=== PATIENT | female | born 1960 | race Caucasian/White ===

== ENCOUNTER 2018-10-05 05:22 | Inpatient (IN) ==
[2018-10-05] MEDS ORDERED: Ipratropium/Albuterol Neb 3 ML IH ONE ×3 (05:24→11:40)
--- NOTE | 2018-10-05 05:27 | Emergency Department Note ---
Addendum entered and electronically signed by Glenn Mccauley MD 10/05/18 10:24: Dr. Teran believes the patient will be appropriate for admission to this facility. Inpatient orders have been placed for continuation of Rocephin and azithromycin, prednisone, Mucinex and when necessary albuterol treatments. Further orders will be per Dr. Teran on the patient's arrival to the inpatient floor. Diagnosis acute respiratory insufficiency, multifocal pneumonia, bilateral pl eural effusions, possible pulmonary edema, elevated lactic acid, stable troponin elevation Addendum entered and electronically signed by Glenn Mccauley MD 10/05/18 10:19: Dr. Teran has come to the department to evaluate this patient personally. Radiology report is as follows: Impressions Chest X-Ray 10/05/18 05:23 IMPRESSION: Perihilar infiltrates with probable small left pleural effusion likely on the basis of pulmonary edema. D/ / 10/05/2018 07:21:06 Kirill Tapia MD / [facility] Interpreting Provider: Kirill Tapia MD Chest CTA 10/05/18 08:59 IMPRESSION: No evidence of pulmonary embolism. Patchy airspace opacities bilaterally, may be related to pulmonary edema versus multifocal pneumonia. Bilateral pleural effusions, moderate on the left and large on the right. D/ / Clay Lane MD / Clay Lane MD Interpreting Provider: Clay Lane MD Addendum entered and electronically signed by Glenn Mccauley MD 10/05/18 10:13: With return of CT results, page has been placed to Dr. Teran to discuss ongoing care. With the effusions and patchy infiltrates I believe the patient will need covered for possible multifocal pneumonia/atypical pneumonia. Rocephin, azithromycin and Solu-Medrol have been ordered. Her influenza was negative. She currently has a heart rate of 107, respiratory rate of 18, saturation of 96% and a blood pressure of 119/75. I will discuss the ultimate disposition with Dr. Teran prior to finalizing any orders for inpatient care. Addendum entered and electronically signed by Glenn Mccauley MD 10/05/18 09:47: 0945: The patient is completed a DuoNeb aerosol and has been able to try a trial of laying flat in the emergency department. She has been taken to CT for PE study. I have reviewed her previous record and I do not see a definite history of COPD although she indicated to me has had history of some chronic bronchitis and pneumonias. She also has a previous history of diverticulitis in the past. There is no record and history of coronary disease, CHF, DVT, PE or smoking. She does have some elevation of her BMI. Her orthopedic surgery was a left knee meniscus procedure. The record does reflect a cardiac catheterization in the distant past which was reported to be normal. An September 2015 she had a chemical nuclear stress test with perfusion results being negative for ischemia or infarction, EKG nondiagnostic due to baseline abnormal ST and no chest pain with stress. Addendum entered and electronically signed by Glenn Mccauley MD 10/05/18 09:04: 0850: Patient was resting in the emergency department awaiting a repeat troponin prior to admission. The troponin was stable at 0.05 but her lactic acid increased from 2.6 to 5.8. This prompted me to review the patient's chart prior to her admission. She is noted to have a white count of 23 with some shift of neutrophils without bandemia. Her blood gas showed some relative hyperventilation with hypoxia. Her renal function was normal. Her BNP is 1245. Her chest x-ray shows prominence. Perihilar infiltrates without other cephalization or significant venous distention. The patient's cardiac silhouet te appears entirely normal and unchanged from prior imaging. I discussed care with Dr. Teran and examined the patient. The patient states that she has had increased symptoms for about 2 weeks. She is been almost unable to get up or walk around for 5 days because of dyspnea on exertion. She has been sleeping sitting up due to orthopnea. She has not had any significant lower extremity edema despite sitting with her feet dependent over this period of time. She states "I thought I had bronchitis or pneumonia". She indicates she has had similar symptoms in the past, but not this bad. She has not been having significant fevers or chills. She states she lives alone and does not have any ill exposures. To clarify her pulmonary status, a CT PE study will be performed to further evaluate between pneumonia, pulmonary edema and pulmonary embolism prior to hospital admission. She will be placed on a nonrebreather mask to allow her to lay flat for the CT study. She has been written for a small fluid bolus and continuation of IV fluids with her elevating lactic acid. Further medications will be administered and ultimate disposition determined depending on results of CT testing. Original Note: Disposition Clinical Impression: Congestive heart failure Qualifiers: Heart failure type: unspecified Heart failure chronicity: acute Qualified Code(s): I50.9 - Heart failure, unspecified Dyspnea Qualifiers: Dyspnea type: dyspnea on exertion Qualified Code(s): R06.09 - Other forms of dyspnea Disposition: Admitted As Inpatient Condition: Fair Referrals: NONE,PCP [Primary Care Provider] - Forms: ED Satisfaction Letter Time of Disposition: 07:14 SOB HPI - General Chief Complaint: ED Shortness of Breath/Dyspnea Stated Complaint: MARCIAL Time Seen by Provider: 10/05/18 05:22 Source: patient, EMS Mode of arrival: EMS Limitations: no limitations Nursing Notes Reviewed: Yes Vital Signs Reviewed: Yes - History of Present Illness Pt Subjective Complaint: shortness of breath, cough Onset (ago): week(s) (About 2 weeks) Severity: severe Consistency/Duration: gradually worsening (Over the past 2 weeks) Improves with: nothing Worsens with: lying flat, exertion Associated symptoms: Reports: cough, sputum production Treatment prior to arrival: bronchodilator Cough present: Yes Cough Frequency: Intermittent Sputum production: Yes Sputum Amount: Scant - Related Data Home oxygen amount: none Home Medications Medication Instructions Recorded Confirmed Atenolol [Tenormin] 50 mg PO DAILY 04/14/15 10/10/16 BuPROPion XL (24 HR) [Wellbutrin 150 mg PO DAILY 04/14/15 10/10/16 XL] Diazepam [Valium] 10 mg PO BID 04/14/15 10/10/16 Dicyclomine [Bentyl] 10 mg PO DAILY 04/14/15 10/10/16 Gabapentin [Neurontin] 600 mg PO DAILY 04/14/15 10/10/16 Hydrochlorothiazide 25 mg PO DAILY 04/14/15 10/10/16 Lamotrigine [Lamictal] 200 mg PO HS 04/14/15 10/10/16 Nitroglycerin [Nitrostat] 0.4 mg SL AD PRN 04/14/15 10/10/16 Quetiapine Fumarate [SEROquel] 25 mg PO HS 04/14/15 10/10/16 Previous Rx's Medication Instructions Recorded Promethazine [Phenergan] 25 mg PO Q6HR PRN #14 tablet 08/25/15 Doxycycline 100 mg PO BID #14 capsule 10/10/16 Allergies Allergy/AdvReac Type Severity Reaction Status Date / Time ampicillin AdvReac Rash Verified 04/14/15 20:04 All systems ED: reviewed and negative except as stated. Constitutional: Reports: chills. Denies: fever ENT ED: Denies: ear pain, throat pain, congestion Cardiovascular: Reports: dyspnea on exertion. Denies: chest pain, palpitations Respiratory: Reports: cough, dyspnea, wheezes Gastrointestinal: Denies: abdominal pain, vomiting, diarrhea Integumentary: Denies: rash Neurological: Denies: headache Past Medical History - Past Medical History Attestation: Yes The following information was validated with the patient. 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 Absent: scleral icterus, conjunctival injection - ENT ENT exam: normal exam, normal oropharynx, mucous membranes moist, TM's normal bilaterally, normal external ear exam - Neck Neck exam: Present: normal inspection, full ROM, trachea midline. Absent: meningismus - Chest Chest inspection: Present: normal inspection, symmetric chest wall rise. Absent: tenderness - Respiratory Respiratory exam: Present: normal lung sounds bilaterally, respiratory distress (Tachypnea), prolonged expiratory phase - Cardiovascular Cardiovascular exam: Present: normal rhythm, tachycardia, normal heart sounds - Abdominal Exam Abdominal exam: Present: soft, Non-Tender, normal bowel sounds - Extremities Exam Extremities exam: Present: normal inspection, full ROM, pedal edema (Trace) - Neurological Exam Neurological exam: Present: alert, oriented X3 - Psychiatric Psychiatric exam: Present: normal affect, normal mood - Skin Skin exam: Present: warm, dry. Absent: rash Course Course Narrative: Patient presents with worsening shortness of breath over the past 2 weeks. Over the past couple of days she doing a lot of coughing started bringing up some mucus talks about dyspnea on exertion but also talks about orthopnea. On physical exam I do not hear any rales in the lungs and I only see trace peripher al edema. This could be COPD. A will give her breathing treatments and initiated shortness of breath workup. Disposition will be based on diagnostic results and reevaluation. - Reevaluation(s) Reevaluation #1: BNP is elevated and the chest x-ray has a CHF pattern to it. Coupling this with dyspnea on exertion and orthopnea, it seems consistent with CHF. I ordered Lasix for the patient. Her troponin is 0.05 which is just shaved above the legal limit. We will repeat that to make sure that is not trending upward. She will need to be admitted. If the troponin is not trending upward we can admit her here. I have given her Lasix. Patient is not telling me she has not taken her blood pressure medicine, including her diuretic, for a while. Time: 07:11 Reevaluation #2: I spoke with the hospitalist. He is accepting the patient for admission to the hospital as long as a troponin is not trending up. Her repeat troponin is due to be drawn at 8:00. At that point is the end of my shift. I will write the admission orders but the oncoming physician will monitor that troponin results and if it is the same or less then the patient will be admitted to the floor. If its trending upward and he will talk to the hospitalist to determine appropriate disposition that point. Time: 07:24 - Consultations Consultation #1: Dr. Teran, hospitalist - I discussed the case with the hospitalist. He accepted the patient for admission pending the repeat troponin. Time: 07:23 Vital Signs Temperature 98.2 F 10/05/18 05:22 Pulse Rate 118 10/05/18 05:22 Respiratory Rate 24 10/05/18 05:22 Blood Pressure 143/93 10/05/18 05:22 O2 Sat by Pulse Oximetry 90 10/05/18 05:22 Temperature 98.2 F 10/05/18 05:22 Pulse Rate 104 10/05/18 06:35 Respiratory Rate 25 10/05/18 06:35 Blood Pressure 125/91 10/05/18 06:35 O2 Sat by Pulse Oximetry 100 10/05/18 06:35 Oxygen Delivery Oxygen Delivery Aerosol Mask Shortness of Breath/Dyspnea - Medical Records Medical records reviewed: Yes I reviewed the patient's medical records. - Lab Data Lab results reviewed: Yes I reviewed the patient's lab results. Result diagrams: 10/05/18 05:46 10/05/18 05:46 Lab Results 10/05/18 10/05/18 10/05/18 Range/Units 05:46 05:46 05:46 WBC 23.0 H (4.3-11.1) K/mcL RBC 4.31 (3.82-4.97) M/mcL Hgb 13.4 (11.5-15.4) g/dL Hct 39.8 (35.3-44.9) % MCV 92.3 (83.0-100.0) fL MCH 31.1 (28.0-33.3) pg MCHC 33.7 (31.6-35.5) g/dL RDW 14.5 (11.5-14.5) % Plt Count 448 H (140-400) K/mcL MPV 11.7 (9.4-12.4) fL Immature Gran % 0.5 (0-4) % Seg Neutrophils % 75.9 % Lymphocytes % 16.6 % Monocytes % 6.6 % Eosinophils % 0.2 % Basophils % 0.2 % Neutrophils # 17.5 H (1.6-8.9) K/mcL Lymphocytes # 3.8 (0.6-4.6) K/mcL Monocytes # 1.5 H (0.0-1.3) K/mcL Eosinophils # 0.1 (0.0-0.6) K/mcL Basophils # 0.1 (0.0-0.2) K/mcL Sample Site ABG pH (7.32-7.45) pH Units ABG pCO2 (35-45) mmHg ABG pO2 (85-104) mmHg ABG HCO3 (21-27) mEq/L ABG Total CO2 (20-26) mEq/L ABG O2 Saturation (95-98) % ABG Base Excess (-2 to 3) mEq/L Grupo Test O2 Delivery Device Inspired O2 (1-15=lpm [id number]=%) Sodium 136 (136-145) mEq/L Potassium 3.5 (3.5-5.1) mEq/L Chloride 100 (98-107) mEq/L Carbon Dioxide 20 L (23-29) mEq/L BUN 22 H (6-20) mg/dL Creatinine 0.64 (0.60-1.20) mg/dL Est GFR ( Amer) > 60 (> 60) Est GFR (Non-Af Amer) > 60 (> 60) BUN/Creatinine Ratio 34 H (6-26) Glucose 144 H (70-105) mg/dL Calculated Osmolality 288 (280-300) Lactic Acid 2.6 H (0.5-2.2) mmol/L Calcium 9.8 (8.6-10.3) mg/dL Troponin I 0.05 H* (< 0.04) ng/mL B-Natriuretic Peptide (Less than 100) pg/mL 10/05/18 10/05/18 Range/Units 05:46 06:24 WBC (4.3-11.1) K/mcL RBC (3.82-4.97) M/mcL Hgb (11.5-15.4) g/dL Hct (35.3-44.9) % MCV (83.0-100.0) fL MCH (28.0-33.3) pg MCHC (31.6-35.5) g/dL RDW (11.5-14.5) % Plt Count (140-400) K/mcL MPV (9.4-12.4) fL Immature Gran % (0-4) % Seg Neutrophils % % Lymphocytes % % Monocytes % % Eosinophils % % Basophils % % Neutrophils # (1.6-8.9) K/mcL Lymphocytes # (0.6-4.6) K/mcL Monocytes # (0.0-1.3) K/mcL Eosinophils # (0.0-0.6) K/mcL Basophils # (0.0-0.2) K/mcL Sample Site R Brach ABG pH 7.46 H (7.32-7.45) pH Units ABG pCO2 25 L (35-45) mmHg ABG pO2 77 L (85-104) mmHg ABG HCO3 18 L (21-27) mEq/L ABG Total CO2 19 L (20-26) mEq/L ABG O2 Saturation 96 (95-98) % ABG Base Excess -5 L (-2 to 3) mEq/L Grupo Test N/A O2 Delivery Device Cannula Inspired O2 3.0 (1-15=lpm [id number]=%) Sodium (136-145) mEq/L Potassium (3.5-5.1) mEq/L Chloride (98-107) mEq/L Carbon Dioxide (23-29) mEq/L BUN (6-20) mg/dL Creatinine (0.60-1.20) mg/dL Est GFR ( Amer) (> 60) Est GFR (Non-Af Amer) (> 60) BUN/Creatinine Ratio (6-26) Glucose (70-105) mg/dL Calculated Osmolality (280-300) Lactic Acid (0.5-2.2) mmol/L Calcium (8.6-10.3) mg/dL Troponin I (< 0.04) ng/mL B-Natriuretic Peptide 1245 H (Less than 100) pg/mL - Radiology Data Radiology results reviewed: Yes I reviewed the patient's radiology results. - EKG Data EKG attestation: Yes I reviewed and interpreted this EKG. EKG results narrative: Twelve-lead EKG performed at 5:30 AM. Ordered, reviewed and interpreted by ED physician shows sinus tachycardia at a rate of 112. Normal axis. Slightly delayed R-wave progression across the precordium. Large P waves consistent with right atrial enlargement. No obvious acute ischemic changes.
[2018-10-05 05:53] LABS: Basophils # 0.1 K/mcL (0.0-0.2); Basophils % 0.2 %; Eosinophils % 0.2 %; Hematocrit 39.8 % (35.3-44.9); Hemoglobin 13.4 g/dL (11.5-15.4); Immature Granulocytes % 0.5 % (0-4); Lymphocytes # 3.8 K/mcL (0.6-4.6); Lymphocytes % 16.6 %; Mean Corpuscular HGB Conc 33.7 g/dL (31.6-35.5); Mean Corpuscular Hemoglobin 31.1 pg (28.0-33.3); Mean Corpuscular Volume 92.3 fL (83.0-100.0); Mean Platelet Volume 11.7 fL (9.4-12.4); Monocytes # 1.5 K/mcL (0.0-1.3); Monocytes % 6.6 %; Neutrophils # 17.5 K/mcL (1.6-8.9); Platelet Count 448 K/mcL (140-400); Red Blood Count 4.31 M/mcL (3.82-4.97); Red Cell Distribution Width 14.5 % (11.5-14.5); Segmented Neutrophils % 75.9 %
[2018-10-05 06:11] LABS: BUN/Creatinine Ratio 34 (6-26); Blood Urea Nitrogen 22 mg/dL (6-20); Calcium 9.8 mg/dL (8.6-10.3); Carbon Dioxide 20 mEq/L (23-29); Chloride 100 mEq/L (98-107); Glucose 144 mg/dL (70-105); Osmolality,Calculated 288 (280-300); Potassium 3.5 mEq/L (3.5-5.1); Sodium 136 mEq/L (136-145); eGFR For Non-African Americans > 60 (> 60)
[2018-10-05 06:25] LABS: Troponin I 0.05 ng/mL (< 0.04)
[2018-10-05 06:26] LABS: Eosinophils # 0.1 K/mcL (0.0-0.6)
[2018-10-05 06:27] LABS: ABG Base Excess -5 mEq/L (-2 to 3); ABG HCO3 18 mEq/L (21-27); ABG Oxygen Saturation 96 % (95-98); ABG PCO2 25 mmHg (35-45); ABG PH 7.46 pH Units (7.32-7.45); ABG PO2 77 mmHg (85-104); ABG TCO2 19 mEq/L (20-26)
[2018-10-05] MEDS ORDERED: Furosemide 40 MG/4 ML VIAL IVP ONE ×3 (06:38→21:39)
[2018-10-05] MEDS ORDERED: Isovue-370 500 ML BOTTLE IVP ONE (08:59)
[2018-10-05] MEDS ORDERED: 0.9 % Sodium Chloride 500 ML IVC ONE (09:00)
[2018-10-05] MEDS ORDERED: 0.9 % Sodium Chloride 1,000 ML IVC SCH ×2 (09:00→11:40)
--- NOTE | 2018-10-05 09:55 | Electrocardiograph Report ---
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
[2018-10-05] MEDS ORDERED: Azithromycin 500 MG in D5% in Water 250 ML IVPB ONE (10:16)
[2018-10-05] MEDS ORDERED: cefTRIAXone 2,000 MG in 0.9 % Sodium Chloride Mini Bag 100 ML IVPB ONE (10:16)
[2018-10-05] MEDS ORDERED: methylPREDNISolone 125 MG/2 ML VIAL IVP ONE (10:16)
[2018-10-05] MEDS ORDERED: Albuterol 2.5 MG/3 ML NEBULIZER IH PRN (11:40)
[2018-10-05] MEDS ORDERED: Naloxone 0.4 MG/ML INJ IVP PRN (11:40)
[2018-10-05] MEDS ORDERED: BuPROPion XL (24 HR) 150 MG TABLET PO SCH ×2 (11:40→21:00)
[2018-10-05] MEDS ORDERED: Gabapentin 300 MG CAPSULE PO SCH (11:40)
[2018-10-05] MEDS: diazePAM 5 MG TABLET PO SCH ×2 (13:01→20:02)
[2018-10-05] MEDS ORDERED: Ipratropium/Albuterol Neb 3 ML IH SCH (16:00)
[2018-10-05] MEDS ORDERED: predniSONE 20 MG TABLET PO SCH (17:00)
--- NOTE | 2018-10-05 17:39 | Internal Med History&Physical ---
Date of Encounter: 10/05/18 Time of Encounter: 17:00 Assessment and Plan (1) Pneumonia Current visit: Yes Status: Acute She has been started on Rocephin and Zithromax through emergency room. Lactobacillus will be added. Qualifiers: Pneumonia type: due to unspecified organism Laterality: bilateral Lung location: unspecified part of lung Qualified Code(s): J18.9 - Pneumonia, unspecified organism (2) Congestive heart failure Current visit: Yes Status: Acute Echocardiogram will be ordered to further evaluate. Qualifiers: Heart failure type: unspecified Heart failure chronicity: acute Qualified Code(s): I50.9 - Heart failure, unspecified (3) Hypertension Current visit: Yes Status: Chronic Continue atenolol but hold HCTZ due to slight azotemia. Qualifiers: Hypertension type: essential hypertension Qualified Code(s): I10 - Essential (primary) hypertension (4) Hypothyroidism Current visit: Yes Status: Acute Check TSH in a.m. Qualifiers: Hypothyroidism type: unspecified Qualified Code(s): E03.9 - Hypothyroidism, unspecified (5) Low vitamin D level Current visit: Yes Status: Acute Check vitamin D level in a.m. Internal Medicine - H&P: HPI Chief complaint: Dyspnea Admitted From: Emergency Dept Plans for Post Hospital Care: Home History of present illness: Ms. Dennis is a 58 year old female who came to emergency room complaining of 2 week history of dyspnea that had worsened over the past 4-5 days. She had a cough with minimal productivity. She reported fevers and chills but no vomiting or diarrhea. She was evaluated emergency room and felt to have bilateral pneumonia was admitted to [facility] floor for ongoing care needs. Respiratory history is significant for being a lifelong nonsmoker. She reports no family members or close contacts have similar symptoms. Past Med Surg Social Fam HX - Past Medical History Medical history: arthritis, hyperlipidemia, hypertension, thyroid disease, other Additional medical history: diverticulosis Psychiatric history: bipolar, depression, previous psychiatric hospitalization - Past Surgical History Surgical History: knee replacement Additional surgical history: left knee replacement - Social History Smoking Status: Never smoker Smokeless Tobacco Status: No Alcohol use: none Drug use: none - Family History Father Adopted: [place]: Ezekiel Howard Family Member Ethnicity: Non- Living Status: Age at : 54 Cause of : heart problems Hx Family Cardiac Disorders: Yes (heart disease) Internal Medicine - H&P: Meds Atenolol [Tenormin] 50 mg PO DAILY 04/14/15 [History] BuPROPion XL (24 HR) [Wellbutrin XL] 150 mg PO DAILY 04/14/15 [History] Diazepam [Valium] 10 mg PO BID 04/14/15 [History] Dicyclomine [Bentyl] 10 mg PO DAILY 04/14/15 [History] Gabapentin [Neurontin] 600 mg PO DAILY 04/14/15 [History] Hydrochlorothiazide 25 mg PO DAILY 04/14/15 [History] Lamotrigine [Lamictal] 200 mg PO HS 04/14/15 [History] Nitroglycerin [Nitrostat] 0.4 mg SL AD PRN 04/14/15 [History] Quetiapine Fumarate [SEROquel] 25 mg PO HS 04/14/15 [History] Promethazine [Phenergan] 25 mg PO Q6HR PRN #14 tablet 08/25/15 [Rx] Doxycycline 100 mg PO BID #14 capsule 10/10/16 [Rx] Allergy/AdvReac Type Severity Reaction Status Date / Time ampicillin AdvReac Rash Verified 04/14/15 20:04 All Systems PM: A 10-system review of systems was performed and is negative for pertinent findings except as documented above in the HPI. Review of systems: Gen.: She states her weight has been stable for several months Cardiovascular: She has history of hypertension. She denies ND heart failure DVT or pulmonary malaise. She has occasional chest pain on exertion and uses on average 2 Nitrostat pills per month. She reports unremarkable heart catheter in 2003 at [facility]. Regadenoson EST 09/30/2015 showed negative perfusion imaging for ischemia or infarct and nondiagnostic EKG findings due to baseline abnormal ST abnormality. The LVEF was 70%. Respiratory: As per history of present illness GI: She denies disorders of her liver gallbladder or exocrine pancreas. She has irritable bowel syndrome with prominent constipation. : She denies hematuria dysuria or kidney stones Neurologic: She denies large distribution strokes or seizures. Endocrine: She has hypothyroidism and hyperlipidemia. She denies diabetes. Hematology/oncology: She has history of anemia. She denies internal malignancies. Psychiatric: She has anxiety and bipolar and follows at mental health clinic. [place] skeletal: She has had remote left total knee replacement. She has DJD but denies gout or other bone joint or muscle disorders. - Constitutional Vitals: Temp Pulse Resp BP Pulse Ox 97.5 F L 84 18 120/80 95 10/05/18 16:00 10/05/18 16:00 10/05/18 16:00 10/05/18 16:00 10/05/18 16:00 Exam: Gen.: She is a well-developed overweight female resting in bed who appears in no acute distress HEENT: Head is atraumatic and normocephalic. Eyes: EOMI. There is no scleral icterus. Mouth: Mucosa is moist. Neck: Supple and nontender. There is no thyromegaly or adenopathy noted. Heart: Regular without murmurs gallops or ectopics Lungs: No wheezes or crackles are heard. Abdomen: Soft and nontender. No masses or guarding are noted. Extremities: There is no cyanosis edema or clubbing noted. Dorsalis pedis and posterior tibial pulses are trace to 1+ palpable bilaterally. Neurologic: Mental status: She is talkative and a good historian. Cranial nerves: Smile is symmetric. Forehead wrinkles bilaterally. Tongue protrudes midline. EOMI. Motor: There is no pronator drift. Cerebellar: Finger to nose is intact bilaterally. Skin: Warm and dry Internal Med - H&P Results - Labs CBC & Chem 7: 10/05/18 05:46 10/05/18 05:46 Labs: Short CBC 10/05/18 Range/Units 05:46 WBC 23.0 H (4.3-11.1) K/mcL Hgb 13.4 (11.5-15.4) g/dL Hct 39.8 (35.3-44.9) % Plt Count 448 H (140-400) K/mcL Neutrophils # 17.5 H (1.6-8.9) K/mcL BMP 10/05/18 05:46 Sodium 136 Potassium 3.5 Chloride 100 Carbon Dioxide 20 L BUN 22 H Creatinine 0.64 Glucose 144 H Calcium 9.8 Cardiac Enzymes 10/05/18 10/05/18 10/05/18 Range/Units 05:46 08:09 12:23 Troponin I 0.05 H* 0.05 H* 0.04 H* (< 0.04) ng/mL - ABG Interpretation ABG results: 10/05/18 06:24 ABG pH 7.46 H ABG pCO2 25 L ABG pO2 77 L ABG HCO3 18 L ABG Total CO2 19 L ABG O2 Saturation 96 ABG Base Excess -5 L - Impressions ITS Impressions Chest X-Ray 10/05/18 05:23 IMPRESSION: Perihilar infiltrates with probable small left pleural effusion likely on the basis of pulmonary edema. D/ / 10/05/2018 07:21:06 Kirill Tapia MD / [facility] Interpreting Provider: Kirill Tapia MD Chest CTA 10/05/18 08:59 IMPRESSION: No evidence of pulmonary embolism. Patchy airspace opacities bilaterally, may be related to pulmonary edema versus multifocal pneumonia. Bilateral pleural effusions, moderate on the left and large on the right. D/ / Clay Lane MD / Clay Lane MD Interpreting Provider: Clay Lane MD
[2018-10-05] MEDS ORDERED: 0.45 % Sodium Chloride w/KCl 20 MEQ/1,000 ML MLS IVC SCH (17:45)
[2018-10-05] MEDS ORDERED: lamoTRIgine 100 MG TABLET PO SCH (21:00)
[2018-10-05] MEDS ORDERED: Lactobacillus 1 EACH CAP.SPRINK PO SCH (21:00)
[2018-10-06 00:19] LABS: ABG Base Excess -3 mEq/L (-2 to 3); ABG HCO3 21 mEq/L (21-27); ABG Oxygen Saturation 93 % (95-98); ABG PCO2 31 mmHg (35-45); ABG PH 7.43 pH Units (7.32-7.45); ABG PO2 65 mmHg (85-104); ABG TCO2 22 mEq/L (20-26); Blood Gas Respiration Rate 12
[2018-10-06] MEDS ORDERED: *HR* Etomidate 20 MG/10 ML AMPUL IVP ONE ×2 (01:05→01:11)
[2018-10-06] MEDS ORDERED: *HR* Midazolam HCl 5 MG/5 ML VIAL IVP ONE ×3 (01:06→01:46)
[2018-10-06] MEDS ORDERED: Propofol 500 MG/50 ML INFUS..BTL ONE (01:12)
[2018-10-06] MEDS ORDERED: Propofol 500 MG/50 ML INFUS..BTL IVC SCH (01:15)
[2018-10-06] MEDS ORDERED: 0.9 % Sodium Chloride 1,000 ML ONE (01:46)
--- NOTE | 2018-10-06 01:50 | Emergency Department Note ---
START Narrative - START START: Patient was evaluated on a rapid response to the floor. She has had decline in her respiratory status and is on BiPAP time my evaluation. Respiratory rate is 42-44 and she is still mentating. She is following all commands. Breath sounds are diminished without focal rales or rhonchi. She has not developed any increase in any extremity swelling or edema. Incoordination with Dr. Teran a arterial but gas and a chest x-ray has been repeated. She remains mildly hyperventilatory with some respiratory alkalosis and a low CO2. Her oxygen however is also low despite the aggressive ventilation with a saturation 93%. Chest x-ray shows increased diffuse infiltrates. I reviewed these films independently and reviewed radiology reading of pulmonary edema, pulmonary hemorrhage versus extensive pneumonia. Dr. Teran does desire this patient be transferred to [facility] to the ICU and has discussed care with the hospitalist Dr. Oneil. I discussed care as well with Dr. Oneil and he requests the patient be intubated prior to transfer to their facility. The patient has been advised of this plan and is in agreement. She has received 5 mg of Versed and prior to 20 mg of etomidate. She is intubated orotracheally with a 7-Urdu endotracheal tube without difficulty. This is seen to traverse the vocal cords and secured at 21-22 cm at the lip. Bilateral breath sounds are confirmed and she has good color change on capnography. Post intubation chest x-ray shows the tip of the endotracheal tube to be 1.9 cm above the jacque. Patient remains with diffuse interstitial patchy infiltrates. This is on my interpretation. After intubation she has been started on the department and drip at 5 mcg/kg/m to be titrated per protocol with boluses as needed. At 50 mcg/kg/m the patient's blood pressure has declined to 80-90 systolic and she is administered a fluid bolus and person with plan for additional bolus in route if need be. The [facility] has arrived for her transfer and she is transferred in guarded condition to [facility] ICU for further evaluation and stabilization.
[2018-10-06] MEDS ORDERED: 0.9 % Sodium Chloride 500 ML IVC ONE (02:15)
[2018-10-06 02:57] VITALS: BP 92/61
--- NOTE | 2018-10-06 09:26 | Discharge Summary ---
Orders not resulted at time of discharge: Pending orders 10/05/18 05:46 Culture,Blood [BC] Stat 10/05/18 17:33 EV echocardiogram Routine Date of Encounter: 10/06/18 Time of Encounter: 09:10 - Discharge Diagnosis (1) Pneumonia Priority: Primary Status: Acute Qualifiers: Pneumonia type: due to unspecified organism Laterality: bilateral Lung location: unspecified part of lung Qualified Code(s): J18.9 - Pneumonia, unspecified organism (2) Congestive heart failure Priority: Secondary Status: Acute Qualifiers: Heart failure type: unspecified Heart failure chronicity: acute Qualified Code(s): I50.9 - Heart failure, unspecified (3) Hypertension Priority: Secondary Status: Chronic Qualifiers: Hypertension type: essential hypertension Qualified Code(s): I10 - Essential (primary) hypertension (4) Hypothyroidism Priority: Secondary Status: Chronic Qualifiers: Hypothyroidism type: unspecified Qualified Code(s): E03.9 - Hypothyroidism, unspecified (5) Low vitamin D level Priority: Secondary Status: Acute Hospital course: Ms. Dennis is a 58 year old female who came to emergency room complaining of 2 week history of dyspnea that had worsened over the past 4-5 days. She had a cough with minimal productivity. She reported fevers and chills but no vomiting or diarrhea. She was evaluated emergency room and felt to have bilateral pneumonia was admitted to [facility] for ongoing care needs. Initial orders were written by the emergency room physician. I saw her the morning of October 05 in emergency room briefly. I saw her the afternoon of October 05 and performed a history and physical. She was started on Rocephin and Zithromax through emergency room. Lactobacillus was added. A few hours after I saw her she developed worsening respiratory distress requiring higher oxygen flows. She was placed on BiPAP and maintained safe oxygenation but had significantly increased work of breathing. It is felt she should be transferred to an ICU setting. I spoke with the hospitalist at [facility] who agreed to accept her in transfer. She was intubated by Dr. Mccauley prior to transfer. She was transferred approximately 0230 on 10/06/2018 to [facility] ICU. - Time Spent with Patient Total time spent providing and/or coordinating discharge services: - Discharge Medications Prescriptions: No Action Lamotrigine [Lamictal] 200 mg PO HS BuPROPion XL (24 HR) [Wellbutrin XL] 150 mg PO DAILY Quetiapine Fumarate [SEROquel] 25 mg PO HS Diazepam [Valium] 10 mg PO BID Hydrochlorothiazide 25 mg PO DAILY Atenolol [Tenormin] 50 mg PO DAILY Nitroglycerin [Nitrostat] 0.4 mg SL AD PRN PRN Reason: Chest Pain Gabapentin [Neurontin] 600 mg PO DAILY Dicyclomine [Bentyl] 10 mg PO DAILY Promethazine [Phenergan] 25 mg PO Q6HR PRN #14 tablet PRN Reason: Nausea Doxycycline 100 mg PO BID #14 capsule Home Medications: Atenolol [Tenormin] 50 mg PO DAILY 04/14/15 [History] BuPROPion XL (24 HR) [Wellbutrin XL] 150 mg PO DAILY 04/14/15 [History] Diazepam [Valium] 10 mg PO BID 04/14/15 [History] Dicyclomine [Bentyl] 10 mg PO DAILY 04/14/15 [History] Gabapentin [Neurontin] 600 mg PO DAILY 04/14/15 [History] Hydrochlorothiazide 25 mg PO DAILY 04/14/15 [History] Lamotrigine [Lamictal] 200 mg PO HS 04/14/15 [History] Nitroglycerin [Nitrostat] 0.4 mg SL AD PRN 04/14/15 [History] Quetiapine Fumarate [SEROquel] 25 mg PO HS 04/14/15 [History] Promethazine [Phenergan] 25 mg PO Q6HR PRN #14 tablet 08/25/15 [Rx] Doxycycline 100 mg PO BID #14 capsule 10/10/16 [Rx] Allergies/Adverse Reactions: Allergy/AdvReac Type Severity Reaction Status Date / Time ampicillin AdvReac Rash Verified 04/14/15 20:04 Date of admission: 10/05/18 17:45 Primary care physician: PCP NONE - Constitutional Vitals: Temp Pulse Resp BP Pulse Ox 97.4 F L 91 48 92/61 93 10/06/18 02:50 10/06/18 02:50 10/06/18 03:26 10/06/18 02:50 10/06/18 03:26 - Patient Status Disposition: Transfer Other Condition: Critical - Discharge Instructions Follow Up With: NONE,PCP [Primary Care Provider] - 1 week
[2018-10-06] MEDS ORDERED: cefTRIAXone 2,000 MG in Water for inj. (sterile) 20 ML 20 ML IVP SCH (10:00)
[2018-10-06] MEDS ORDERED: cefTRIAXone 2,000 MG in 0.9 % Sodium Chloride Mini Bag 100 ML IVPB SCH (11:00)
[2018-10-06] MEDS ORDERED: Azithromycin 500 MG in D5% in Water 250 ML IVPB SCH (11:00)
== END 2018-10-06 02:15 | disposition other institution (70) | DRG 139 ==
LOC: INPPIK 05:22 → EMEROOPIK 05:22 → INPPIK 11:34
PROVIDERS: ADMIT Internal Medicine; ATTEND Internal Medicine